=== PATIENT | male | born 1985 | race Caucasian/White ===

== ENCOUNTER 2017-06-05 21:22 | Inpatient (IN) | payer OTHER, MEDICAID ==
[~2017-06-05] VITALS: Ht 177.8 cm; Wt 64.0 kg
[2017-06-05] MEDS ORDERED: SODIUM CHLORIDE 0.9% 1,000 ML IV ONE (22:51)
[2017-06-05] MEDS ORDERED: DIPHENHYDRAMINE 50MG/ML VIAL IM STA (22:51)
[2017-06-05] MEDS ORDERED: LORAZEPAM 2MG/ML CPJ IV STA (22:51)
[2017-06-05] MEDS ORDERED: HALOPERIDOL LACTATE 5MG/ML VIAL IM STA (22:51)
[2017-06-05 23:37] LABS: BASOPHILS % 0.4 % (0.0-2.0); EOSINOPHILS % 0.3 % (0.0-5.0); HEMATOCRIT. 43.2 % (42.0-52.0); MEAN CORPUSCULAR HEMOGLOBIN 31.8 pg (28.0-32.0); MEAN CORPUSCULAR VOLUME 91.3 fL (80.0-94.0); MONOCYTES % 9.3 % (2.0-8.0); PLATELET 135 x1000/uL (130-400); RED BLOOD CELL COUNT 4.73 mill/uL (4.7-6.1); RED CELL DISTRIBUTION WIDTH 14.3 % (11.6-14.6)
[2017-06-05 23:51] LABS: AMMONIA 131 uMol/L (<32)
[2017-06-05 23:55] LABS: CARBON DIOXIDE 25 mEq/L (21-32); CHLORIDE 107 mEq/L (98-107); ETHANOL BLOOD < 10 mg/dL; TROPONIN I < 0.02 ng/mL (0.00-0.04)
[2017-06-06] VITALS (14 sets, daily range): BP systolic 106–161; BP diastolic 63–88
[2017-06-06 00:04] LABS: CREATINE KINASE 1273 IU/L (39-308)
[2017-06-06] MEDS ORDERED: SODIUM CHLORIDE 0.9% 1000ML BAG (SEPSIS BOLUS) IV NR (00:15)
[2017-06-06] MEDS ORDERED: LORAZEPAM 2MG/ML CPJ IV NR (00:15)
[2017-06-06 03:52] LABS: *AMPHETAMINES SCREEN URINE NEGATIVE (NEGATIVE); *BARBITURATES SCREEN URINE NEGATIVE (NEGATIVE); *BENZODIAZEPINES SCREEN URINE PRESUMTIVE POSITIVE (NEGATIVE); *COCAINE SCREEN URINE NEGATIVE (NEGATIVE); CANNABINOID URINE SCREEN PRESUMTIVE POSITIVE (NEGATIVE); CLARITY URINE CLEAR (CLEAR); COLOR URINE YELLOW (YELLOW); GLUCOSE URINE NEGATIVE (NEGATIVE); KETONES URINE NEGATIVE (NEGATIVE); LEUKOCYTE ESTERASE URINE NEGATIVE (NEGATIVE); NITRITE URINE NEGATIVE (NEGATIVE); OCCULT BLOOD URINE NEGATIVE (NEGATIVE); OPIATES URINE SCREEN NEGATIVE (NEGATIVE); PHENCYCLIDINE URINE SCREEN NEGATIVE (NEGATIVE); PROTEIN URINE NEGATIVE (NEGATIVE); SPECIFIC GRAVITY URINE 1.013 (1.005-1.030); UROBILINOGEN URINE 0.2 E.U./dL (0.2-1.0)
[2017-06-06 04:22] LABS: METHADONE URINE SCREEN NEGATIVE (NEGATIVE)
[2017-06-06 09:18] LABS: CREATINE KINASE 875 IU/L (39-308)
[2017-06-06] MEDS ORDERED: ONDANSETRON HCL 4MG/2ML VIAL IV PRN (11:30)
[2017-06-06] MEDS ORDERED: GUAIFENESIN 200MG/10ML SUGAR FREE UDC PO PRN (11:30)
[2017-06-06] MEDS ORDERED: MAGNESIUM/ALUMINUM HYDROXIDE/SIMETHICONE 30ML UDC PO PRN (11:30)
[2017-06-06] MEDS ORDERED: ACETAMINOPHEN 325MG TABLET PO PRN (11:30)
[2017-06-06] MEDS ORDERED: CLONIDINE 0.1MG TABLET PO PRN (11:30)
[2017-06-06] MEDS: SODIUM CHLORIDE 0.9% 1,000 ML IV SCH (13:13)
[2017-06-06] MEDS: LACTULOSE 20G/30ML UDC PO SCH ×2 (13:19→22:26)
[2017-06-06 15:44] LABS: CREATINE KINASE 831 IU/L (39-308)
[2017-06-07] VITALS (9 sets, daily range): BP systolic 108–133; BP diastolic 48–76
[2017-06-07] MEDS: SODIUM CHLORIDE 0.9% 1,000 ML IV SCH ×2 (01:09→08:04)
[2017-06-07] MEDS: LACTULOSE 20G/30ML UDC PO SCH ×2 (05:26→14:00)
[2017-06-07 06:10] LABS: BASOPHILS % 0.5 % (0.0-2.0); EOSINOPHILS % 1.5 % (0.0-5.0); HEMATOCRIT. 40.2 % (42.0-52.0); HEMOGLOBIN. 13.9 g/dL (14.0-18.0); LYMPHOCYTES % 29.3 % (20.0-50.0); MEAN CORPUSCULAR HEMOGLOBIN 32.1 pg (28.0-32.0); MEAN PLATELET VOLUME 9.1 fl (7.4-10.4); NEUTROPHILS % 58.7 % (40.0-76.0); PLATELET 123 x1000/uL (130-400); RED BLOOD CELL COUNT 4.32 mill/uL (4.7-6.1); RED CELL DISTRIBUTION WIDTH 14.5 % (11.6-14.6)
[2017-06-07 06:35] LABS: AMMONIA 97 uMol/L (<32)
[2017-06-07 06:58] LABS: CARBON DIOXIDE 24 mEq/L (21-32); CHLORIDE 108 mEq/L (98-107); CREATINE KINASE 543 IU/L (39-308)
[2017-06-07] MEDS ORDERED: ASPIRIN 81MG EC TABLET PO SCH (09:00)
== END 2017-06-07 15:50 | disposition home or self-care (01) | DRG 557 ==
LOC: ER 21:49 → 5EST 06-06 00:33 → ENRESERV 06-06 02:37 → 5EST 06-06 08:10
PROVIDERS: ADMIT Hospitalist; ATTEND Hospitalist
DX: M62.82 Rhabdomyolysis (principal); G93.40 Encephalopathy, unspecified; E87.2 Acidosis; E72.4 Disorders of ornithine metabolism; Z78.1 Physical restraint status; Z82.49 Family history of ischemic heart disease and other diseases of the circulatory system; Z91.018 Allergy to other foods
CPT/HCPCS: 36415; 70450; 71010; 80053; 80305; 80307; 80329; 81003; 82140; 82550; 82962; 83605; 83690; 84443; 84484; 85025; 96361; 96374; 96376; 99291; G0482; J1200; J1630; J2060; J7030

== ENCOUNTER 2017-06-15 09:43 | Observation (INO) | payer OTHER, MEDICAID ==
[~2017-06-15] VITALS: Ht 182.9 cm; Wt 57.3 kg
[2017-06-15] MEDS ORDERED: SODIUM CHLORIDE 0.9% 1,000 ML IV ONE (10:07)
[2017-06-15] MEDS ORDERED: HALOPERIDOL LACTATE 5MG/ML VIAL IM ONE (10:30)
[2017-06-15] MEDS ORDERED: DIPHENHYDRAMINE 50MG/ML VIAL IM ONE (10:30)
[2017-06-15] MEDS ORDERED: LORAZEPAM 2MG/ML CPJ IM ONE (10:30)
[2017-06-15 10:56] LABS: BASOPHILS % 0.5 % (0.0-2.0); EOSINOPHILS % 0.3 % (0.0-5.0); HEMATOCRIT. 41.2 % (42.0-52.0); HEMOGLOBIN. 14.1 g/dL (14.0-18.0); LYMPHOCYTES % 26.4 % (20.0-50.0); MEAN CORPUSCULAR HEMOGLOBIN 31.4 pg (28.0-32.0); MEAN CORPUSCULAR VOLUME 91.8 fL (80.0-94.0); MEAN PLATELET VOLUME 8.3 fl (7.4-10.4); MONOCYTES % 10.2 % (2.0-8.0); NEUTROPHILS % 62.6 % (40.0-76.0); PLATELET 171 x1000/uL (130-400); RED BLOOD CELL COUNT 4.49 mill/uL (4.7-6.1); RED CELL DISTRIBUTION WIDTH 13.9 % (11.6-14.6)
[2017-06-15 11:05] LABS: INR 1.2; PROTHROMBIN TIME 12.4 sec
[2017-06-15 11:10] LABS: CARBON DIOXIDE 30 mEq/L (21-32); CHLORIDE 105 mEq/L (98-107); ETHANOL BLOOD < 10 mg/dL
[2017-06-15 11:11] LABS: AMMONIA 45 uMol/L (<32)
[2017-06-15 11:13] LABS: CREATINE KINASE 213 IU/L (39-308)
[2017-06-15] MEDS ORDERED: LEVOFLOXACIN 750MG PREMIX 150 ML IV ONE (12:45)
[2017-06-15] MEDS ORDERED: SODIUM CHLORIDE 0.9% 1,000 ML IV SCH (12:45)
[2017-06-15 17:00] VITALS: BP 114/72
[2017-06-15 17:15] VITALS: BP 114/72
[2017-06-15] MEDS ORDERED: LACT10SO6 MT ×2 (17:20→18:50)
[2017-06-15] MEDS: LACTULOSE 20G/30ML UDC PO SCH ×2 (18:00→23:31)
[2017-06-15 20:00] VITALS: BP 109/75
[2017-06-15] MEDS ORDERED: ENOXAPARIN 40MG/0.4ML SYR SUBCUT SCH (21:00)
[2017-06-16] VITALS: BP 105/71
[2017-06-16 04:00] VITALS: BP 112/83
[2017-06-16] MEDS: LACTULOSE 20G/30ML UDC PO SCH ×2 (05:45→12:00)
[2017-06-16 08:00] VITALS: BP 112/62
[2017-06-16 12:00] VITALS: BP 106/67
[2017-06-16 13:40] LABS: AMMONIA 90 uMol/L (<32)
[2017-06-16 16:16] VITALS: BP 112/62
== END 2017-06-16 17:21 | disposition home or self-care (01) ==
LOC: ER 09:55 → 5WST 11:46 → INTOOBSV 11:46 → EDBEDREQ 11:52 → EDBEDREQSVC 11:52 → ENRESERV 12:28 → CANRESERV 12:28 → ENRESERV 15:31
PROVIDERS: ADMIT Internal Medicine; ATTEND Internal Medicine
DX: E72.20 Disorder of urea cycle metabolism, unspecified (principal); E72.4 Disorders of ornithine metabolism; G93.41 Metabolic encephalopathy; I10 Essential (primary) hypertension; R45.1 Restlessness and agitation; N19 Unspecified kidney failure; Z82.49 Family history of ischemic heart disease and other diseases of the circulatory system
CPT/HCPCS: 36415; 70450; 71010; 80053; 82140; 82550; 82962; 83605; 85025; 85610; 87040; 93005; 96361; 96365; 96372; 99285; G0378; G0482; J1200; J1630; J1650; J1956; J2060; 96366; J7030